=== PATIENT | female | born 1955 | race Caucasian/White ===

== ENCOUNTER → 2016-09-17 | Outpatient (CLI) | payer BC ==
[~2016-09-17] MED LIST: CALC600T2 PO; ESTR0.6261 PO; FOLI-40 PO; MULT-543 PO
--- NOTE | 2016-09-17 12:14 | DI ---
Indication: ITS.REASON: M25.571 PAIN IN RIGHT ANKLE PROCEDURE: ANKLE RIGHT 3 VIEW: Encounter: Initial Comparison: June 16, 2008 Findings: There is no acute fracture, dislocation or malalignment identified. Small inferior calcaneal spur. No significant degenerative changes in the ankle joint. Impression: No acute osseous abnormality. .
[2016-09-17 12:16] LABS: BASOPHILS % (AUTO) 0.1 % (0-2); EOSINOPHILS # (AUTO) 0.1 T/MM3 (0-0.5); EOSINOPHILS % (AUTO) 0.9 % (0-4); HCT - HEMATOCRIT 41.8 % (36-46); HGB - HEMOGLOBIN 13.5 GM/DL (12-16); IMMATURE GRANULOCYTE # (AUTO) 0.02 T/MM3 (0.00-0.03); IMMATURE GRANULOCYTE % (AUTO) 0.3 % (0.0-0.5); LYMPHOCYTES # (AUTO) 1.8 T/MM3 (1-4.8); LYMPHOCYTES % (AUTO) 25.1 % (23-45); MEAN CORPUSCULAR HGB 30.2 UUG (26-34); MEAN CORPUSCULAR HGB CONC(MCHC 32.3 GM/DL (31-37); MEAN CORPUSCULAR VOLUME 93.5 UM3 (80-100); MEAN PLATELET VOLUME 9.3 UM3 (9.4-12.4); MONOCYTES # (AUTO) 0.4 T/MM3 (0-0.8); MONOCYTES % (AUTO) 5.6 % (0-9.0); NEUTROPHILS #(AUTO)-ABSOLUTE 4.7 T/MM3 (1.8-7.7); RED BLOOD COUNT 4.47 M/MM3 (4.00-5.20)
[2016-09-17 12:27] LABS: C-REACTIVE PROTEIN 14.4 MG/L (0-9)
[2016-09-17 13:16] LABS: URIC ACID 4.5 MG/DL (2.5-7.5)
== END ==
LOC: IMA 11:39
PROVIDERS: ATTEND Physician Assistant
DX: M25.571 Pain in right ankle and joints of right foot (principal); K50.90 Crohn's disease, unspecified, without complications
CPT/HCPCS: 36415; 84550; 85025; 85652; 86140